=== PATIENT | female | born 1970 | race Caucasian/White ===

== ENCOUNTER 2019-01-20 13:12 | Emergency (ER) | payer MEDICAID ==
[~2019-01-20] VITALS: Ht 162.6 cm; Wt 69.0 kg
[~2019-01-20 13:12] MED LIST: DIOS630T MT; FOLI-43 PO; HYDR200T80 MT; MECL12.584 PO; METH2.5T PO; PRED10TA23 MT; PREG75CA MT; SERT50TA MT
[2019-01-20] MEDS ORDERED: KETOROLAC 30MG/ML VIAL IV STA (16:45)
[2019-01-20] MEDS ORDERED: SODIUM CHLORIDE 0.9% 1,000 ML IV ONE (16:45)
[2019-01-20] MEDS ORDERED: ONDANSETRON HCL 4MG/2ML INJ IV STA (16:45)
[2019-01-20 17:16] LABS: CHLORIDE 106 mEq/L (98-107)
[2019-01-20 17:17] LABS: BASOPHILS % 0.6 % (0.0-2.0); EOSINOPHILS % 2.3 % (0.0-5.0); HEMOGLOBIN. 13.8 g/dL (12.0-16.0); LYMPHOCYTES % 40.9 % (20.0-50.0); MEAN CORPUSCULAR HEMOGLOBIN 30.4 pg (28.0-32.0); MEAN CORPUSCULAR VOLUME 90.4 fL (81.0-99.0); MEAN PLATELET VOLUME 7.7 fl (7.4-10.4); MONOCYTES % 7.1 % (2.0-8.0); NEUTROPHILS % 49.1 % (40.0-76.0); PLATELET 295 x1000/uL (130-400); RED BLOOD CELL COUNT 4.53 mill/uL (4.2-5.4)
[2019-01-20 18:21] LABS: CLARITY URINE CLEAR (CLEAR); COLOR URINE YELLOW (YELLOW); KETONES URINE NEGATIVE (NEGATIVE); LEUKOCYTE ESTERASE URINE NEGATIVE (NEGATIVE); NITRITE URINE NEGATIVE (NEGATIVE); OCCULT BLOOD URINE NEGATIVE (NEGATIVE); PROTEIN URINE NEGATIVE (NEGATIVE); SPECIFIC GRAVITY URINE 1.017 (1.005-1.030); UROBILINOGEN URINE 0.2 E.U./dL (0.2-1.0)
[2019-01-20 19:47] VITALS: BP 129/66
== END 2019-01-20 20:01 | disposition home or self-care (01) ==
LOC: ER 13:12
DX: R51 Headache (principal); K29.00 Acute gastritis without bleeding; R42 Dizziness and giddiness; Z90.710 Acquired absence of both cervix and uterus; Z87.39 Personal history of other diseases of the musculoskeletal system and connective tissue
CPT/HCPCS: 36415; 80053; 81003; 81025; 83690; 85025; 96361; 96374; 96375; 99283; J1885; J2405; J7030; Z7610

== ENCOUNTER 2021-09-29 10:35 | Emergency (ER) | payer MEDICARE, MEDICAID ==
[~2021-09-29] VITALS: Ht 162.6 cm; Wt 83.0 kg
[~2021-09-29 10:35] MED LIST changes: -DIOS630T MT; +DULO60CA64 PO; +ERGO1250 PO; +FLUT15.844 BOTHNSTRLS; -FOLI-43 PO; +GABA-532 PO; +HYDR-3735 PO; -HYDR200T80 MT; +HYDR200T80 PO; +IBUP-2029 PO; +LOSA50TA41 PO; +MECL-159 PO; -MECL12.584 PO; -METH2.5T PO; +NORT10CA PO; +OMEP20CA14 PO; -PRED10TA23 MT; +PRED5TAB PO; -PREG75CA MT; +[UNRECOGNIZED DRUG - CODE] TP
[2021-09-29] MEDS ORDERED: PREDNISONE 20MG TABLET PO STA (11:23)
[2021-09-29] MEDS ORDERED: NITROGLYCERIN 0.4MG TABLET SL SL PRN (11:30)
[2021-09-29] MEDS ORDERED: ASPIRIN 81MG TABLET PO ONE (11:30)
[2021-09-29] MEDS ORDERED: TETRACAINE 0.5% OPHTH DROPS 4ML LEFTEYE ONE (11:45)
[2021-09-29] MEDS ORDERED: FLUORESCEIN SODIUM 1MG/STRIP LEFTEYE ONE (11:45)
[2021-09-29] MEDS ORDERED: KETOROLAC 15MG/ML VIAL IV ONE (11:45)
[2021-09-29] MEDS ORDERED: METHYLPREDNISOLONE SOD SUCC 125 MG/2 ML VIAL IV ONE (12:00)
[2021-09-29 12:46] LABS: HCG SCREEN INDETERMINATE
[2021-09-29 12:49] LABS: CHLORIDE 108 mEq/L (98-107)
[2021-09-29 14:12] LABS: BASOPHILS % 0.9 % (0.0-2.0); EOSINOPHILS % 2.8 % (0.0-5.0); HEMATOCRIT. 40.5 % (36.0-48.0); HEMOGLOBIN. 14.1 g/dL (12.0-16.0); LYMPHOCYTES % 48.8 % (20.0-50.0); MEAN CORPUSCULAR HEMOGLOBIN 29.6 pg (28.0-32.0); MEAN CORPUSCULAR VOLUME 84.9 fL (81.0-99.0); MONOCYTES % 10.6 % (2.0-8.0); NEUTROPHILS % 36.9 % (40.0-76.0); PLATELET 344 x1000/uL (130-400); RED BLOOD CELL COUNT 4.77 mill/uL (4.2-5.4); RED CELL DISTRIBUTION WIDTH 13.9 % (11.6-14.6)
[2021-09-29] MEDS ORDERED: DIPHENHYDRAMINE 50MG/ML VIAL IV ONE (15:00)
[2021-09-29] MEDS ORDERED: METOCLOPRAMIDE HCL 10MG/2ML VIAL IV ONE (15:00)
[2021-09-29] MEDS ORDERED: SODIUM CHLORIDE 0.9% 1,000 ML IV ONE (15:00)
[2021-09-29 17:04] VITALS: BP 137/76
== END 2021-09-29 17:05 | disposition home or self-care (01) ==
LOC: ER 10:35
DX: R51.9 Headache, unspecified (principal); E78.00 Pure hypercholesterolemia, unspecified; I10 Essential (primary) hypertension; M32.9 Systemic lupus erythematosus, unspecified; Z98.51 Tubal ligation status
CPT/HCPCS: 36415; 71045; 80053; 82962; 83690; 83880; 84484; 84702; 84703; 85025; 85651; 86140; 87426; 93005; 96361; 96374; 96375; 99285; J1200; J1885; J2765; J7512; J2930

== ENCOUNTER 2021-10-20 08:32 | Emergency (ER) | payer MEDICARE, MEDICAID ==
[~2021-10-20] VITALS: Ht 157.5 cm; Wt 84.0 kg
[2021-10-20 10:13] VITALS: BP 139/76
[2021-10-20] MEDS ORDERED: AMOXICILLIN/POTASSIUM CLAVULANATE 875/125MG TAB PO ONE (10:30)
[2021-10-20] MEDS ORDERED: IBUPROFEN 400MG TABLET PO ONE (10:30)
[2021-10-20] MEDS ORDERED: MAGNESIUM/ALUMINUM HYDROXIDE/SIMETHICONE 30ML UDC PO ONE (10:45)
[2021-10-20] MEDS ORDERED: ONDANSETRON 4MG ODT PO ONE (11:00)
[2021-10-20 11:53] LABS: BASOPHILS % 0.5 % (0.0-2.0); EOSINOPHILS % 1.4 % (0.0-5.0); HEMATOCRIT. 40.6 % (36.0-48.0); HEMOGLOBIN. 13.9 g/dL (12.0-16.0); LYMPHOCYTES % 27.2 % (20.0-50.0); MEAN CORPUSCULAR HEMOGLOBIN 29.3 pg (28.0-32.0); MEAN CORPUSCULAR VOLUME 85.8 fL (81.0-99.0); MEAN PLATELET VOLUME 7.7 fl (7.4-10.4); MONOCYTES % 12.6 % (2.0-8.0); NEUTROPHILS % 58.3 % (40.0-76.0); PLATELET 284 x1000/uL (130-400); RED BLOOD CELL COUNT 4.74 mill/uL (4.2-5.4); RED CELL DISTRIBUTION WIDTH 14.3 % (11.6-14.6)
[2021-10-20 12:00] LABS: CHLORIDE 108 mEq/L (98-107)
[2021-10-20] MEDS ORDERED: IBUP-2028 MT (12:45)
[2021-10-20] MEDS ORDERED: AMOX-424 MT (12:45)
== END 2021-10-20 12:57 | disposition home or self-care (01) ==
LOC: ER 09:21
DX: L03.213 Periorbital cellulitis (principal); K08.89 Other specified disorders of teeth and supporting structures; R10.9 Unspecified abdominal pain; R11.0 Nausea; M19.90 Unspecified osteoarthritis, unspecified site; E78.00 Pure hypercholesterolemia, unspecified; M32.9 Systemic lupus erythematosus, unspecified; I10 Essential (primary) hypertension; Z98.51 Tubal ligation status
CPT/HCPCS: 36415; 71045; 80053; 83690; 85025; 93005; 99285; Q0162

== ENCOUNTER 2023-07-31 13:25 | Emergency (ER) | payer OTHER, MEDICAID ==
[~2023-07-31] VITALS: Ht 165.1 cm; Wt 68.0 kg
[~2023-07-31 13:25] MED LIST changes: +AMOX-424 MT; +IBUP-2028 MT; -MECL-159 PO; +MECL-299 PO
[2023-07-31 14:06] VITALS: BP 96/58; PULSE 83; RESP 18; TEMP 98.6; O2SAT 97
== END 2023-07-31 18:22 | disposition left against medical advice (07) ==
LOC: ER 13:25
DX: R07.89 Other chest pain (principal); Z53.21 Procedure and treatment not carried out due to patient leaving prior to being seen by health care provider
CPT/HCPCS: 93005; 99281

== ENCOUNTER 2024-04-23 08:29 | Emergency (ER) | payer OTHER, MEDICAID ==
[~2024-04-23] VITALS: Ht 162.6 cm; Wt 81.0 kg
[2024-04-23 08:34] VITALS: O2SAT 98
[2024-04-23 09:20] LABS: BASOPHILS % 0.6 % (0.0-2.0); EOSINOPHILS % 1.8 % (0.0-5.0); HEMATOCRIT. 40.5 % (36.0-48.0); HEMOGLOBIN. 13.8 g/dL (12.0-16.0); LYMPHOCYTES % 44.8 % (20.0-50.0); MEAN CORPUSCULAR VOLUME 88.1 fL (81.0-99.0); MEAN PLATELET VOLUME 8.2 fl (7.4-10.4); MONOCYTES % 8.9 % (2.0-8.0); NEUTROPHILS % 43.9 % (40.0-76.0); PLATELET 331 x1000/uL (130-400); RED CELL DISTRIBUTION WIDTH 13.4 % (11.6-14.6); WHITE BLOOD COUNT 5.2 x1000/uL (4.5-11.0)
[2024-04-23 09:27] LABS: CHLORIDE 105 mEq/L (98-107); POTASSIUM 4.1 mEq/L (3.5-5.1); SODIUM 140 mEq/L (136-145)
[2024-04-23 09:27] LABS: CLARITY URINE CLEAR (CLEAR); COLOR URINE YELLOW (YELLOW); GLUCOSE URINE NEGATIVE (NEGATIVE); KETONES URINE NEGATIVE (NEGATIVE); LEUKOCYTE ESTERASE URINE 1+ (NEGATIVE); NITRITE URINE NEGATIVE (NEGATIVE); OCCULT BLOOD URINE NEGATIVE (NEGATIVE); PROTEIN URINE NEGATIVE (NEGATIVE); SPECIFIC GRAVITY URINE 1.019 (1.005-1.030); UROBILINOGEN URINE 0.2 E.U./dL (0.2-1.0)
[2024-04-23 09:28] LABS: CALCIUM 9.6 mg/dL (8.7-10.4); CARBON DIOXIDE 31 mEq/L (21-32)
[2024-04-23 09:33] LABS: CREATININE 0.7 mg/dL (0.6-1.0); GLUCOSE 98 mg/dL (70-105); UREA NITROGEN BLOOD 14 mg/dL (9-23)
[2024-04-23 09:35] LABS: ALANINE AMINOTRANSFERASE 18 IU/L (10-49); ALBUMIN 4.4 g/dL (3.2-4.8); ASPARTATE AMINOTRANSFERASE 20 IU/L (<34); BILIRUBIN TOTAL 0.4 mg/dL (0.1-1.0); PROTEIN TOTAL 7.4 g/dL (6.0-8.3)
[2024-04-23 09:35] LABS: BACTERIA URINE 1+; RBC URINE 0-2 /hpf (0-2); SQUAMOUS EPITHELIAL CELL URINE 1+ /lpf (RARE/1+); WBC URINE 0-2 /hpf (0-2); YEAST URINE NONE SEEN
[2024-04-23 09:38] LABS: BILIRUBIN DIRECT < 0.1 mg/dL (<=3.0)
[2024-04-23 09:39] LABS: INR 0.9; PROTHROMBIN TIME 10.5 sec (9.6-11.0)
[2024-04-23 10:54] VITALS: BP 122/60; PULSE 87; RESP 18; TEMP 36.83628; O2SAT 98
== END 2024-04-23 10:54 | disposition home or self-care (01) ==
LOC: ER 08:29
DX: R10.84 Generalized abdominal pain (principal); E78.00 Pure hypercholesterolemia, unspecified; I10 Essential (primary) hypertension; Z79.899 Other long term (current) drug therapy; Z98.51 Tubal ligation status
CPT/HCPCS: 36415; 74176; 80048; 80076; 81003; 85025; 93005; 99284

== ENCOUNTER 2025-07-30 10:11 | Emergency (ER) | payer MEDICARE, MEDICAID ==
[~2025-07-30] VITALS: Ht 162.6 cm; Wt 73.0 kg
[~2025-07-30 10:11] MED LIST changes: +GABA-1180 PO; -GABA-532 PO; +IBUP-1455 PO; -IBUP-2029 PO
[2025-07-30 10:37] VITALS: O2SAT 99
[2025-07-30] MEDS: ONDANSETRON 4MG ODT PO ONE (10:55)
[2025-07-30] MEDS: ACETAMINOPHEN 500MG TABLET PO ONE (10:56)
[2025-07-30] MEDS: KETOROLAC 15MG/ML VIAL IM ONE (10:56)
[2025-07-30 11:11] LABS: CREATININE 0.7 mg/dL (0.6-1.0)
[2025-07-30 11:12] LABS: PROTEIN TOTAL 7.3 g/dL (6.0-8.3); UREA NITROGEN BLOOD 12 mg/dL (9-23)
[2025-07-30 11:13] LABS: ASPARTATE AMINOTRANSFERASE 17 IU/L (<34)
[2025-07-30 11:14] LABS: BILIRUBIN DIRECT < 0.1 mg/dL (<=3.0); BILIRUBIN TOTAL 0.4 mg/dL (0.1-1.0)
[2025-07-30 11:27] LABS: BASOPHILS % 0.6 % (0.0-2.0); EOSINOPHILS % 2.4 % (0.0-5.0); HEMATOCRIT. 42.2 % (36.0-48.0); HEMOGLOBIN. 14.1 g/dL (12.0-16.0); LYMPHOCYTES % 48.7 % (20.0-50.0); MEAN PLATELET VOLUME 8.3 fl (7.4-10.4); MONOCYTES % 10.0 % (2.0-8.0); NEUTROPHILS % 38.3 % (40.0-76.0); PLATELET 306 x1000/uL (130-400); RED BLOOD CELL COUNT 4.80 mill/uL (4.2-5.4); RED CELL DISTRIBUTION WIDTH 14.0 % (11.6-14.6)
[2025-07-30 13:12] LABS: CLARITY URINE CLEAR (CLEAR); COLOR URINE YELLOW (YELLOW); GLUCOSE URINE NEGATIVE (NEGATIVE); KETONES URINE NEGATIVE (NEGATIVE); LEUKOCYTE ESTERASE URINE TRACE (NEGATIVE); NITRITE URINE NEGATIVE (NEGATIVE); OCCULT BLOOD URINE NEGATIVE (NEGATIVE); PH URINE 5.5 (4.5-8.0); PROTEIN URINE NEGATIVE (NEGATIVE); SPECIFIC GRAVITY URINE 1.005 (1.005-1.030); UROBILINOGEN URINE 0.2 E.U./dL (0.2-1.0)
[2025-07-30 13:34] LABS: BACTERIA URINE TRACE; RBC URINE 0-2 /hpf (0-2); SQUAMOUS EPITHELIAL CELL URINE 1+ /lpf (RARE/1+); WBC URINE 0-2 /hpf (0-2); YEAST URINE NONE SEEN
[2025-07-30] MEDS ORDERED: CEPH500C2 MT (13:40)
[2025-07-30 13:47] VITALS: BP 110/65; PULSE 59; RESP 13; TEMP 37; O2SAT 100
== END 2025-07-30 13:48 | disposition home or self-care (01) ==
LOC: ER 10:11 → CMPBEDREQ 07-31 12:37
DX: N39.0 Urinary tract infection, site not specified (principal); M19.90 Unspecified osteoarthritis, unspecified site; I10 Essential (primary) hypertension; E78.00 Pure hypercholesterolemia, unspecified; Z79.899 Other long term (current) drug therapy; Z79.52 Long term (current) use of systemic steroids; Z98.51 Tubal ligation status; Z90.710 Acquired absence of both cervix and uterus; Z79.1 Long term (current) use of non-steroidal anti-inflammatories (NSAID)
CPT/HCPCS: 99285; 74176; 80076; 80048; 81003; 83690; 85025; 36415; 96372; J1885; Q0162